=== PATIENT | male | born 1945 | race Caucasian/White ===

== ENCOUNTER 2017-11-12 10:30 | Emergency (ER) | payer OTHER ==
[2017-11-12 11:32] LABS: Absolute Lymphocytes (CBC) 1.4 K/uL (0.7-4.9); Absolute Monocytes 0.6 K/uL (0.1-1.3); Absolute Neutrophil 7.2 K/uL (1.8-8.0); Basophils % 0.4 % (0-1.3); Eosinophils % 0.8 % (0-4.4); Hematocrit 41.7 % (39.6-49.0); Lymphocytes % 14.9 % (15.3-44.8); MCH 31.8 pg (27.0-35.0); MCV 90.4 fL (80-100); MPV 7.4 fL (7.6-11.3); Monocytes % 6.3 % (3.3-12.3); RBC Red Blood Cell Count 4.61 M/uL (4.33-5.43)
[2017-11-12 11:51] LABS: ALT/SGPT 21 U/L (12-78); AST/SGOT 17 U/L (15-37); Alkaline Phosphatase 64 U/L (45-117); BUN Blood Urea Nitrogen 6 mg/dL (7-18); Bicarbonate 27 mmol/L (21-32); Bilirubin Direct 0.3 mg/dL (0-0.2); Bilirubin Total 0.8 mg/dL (0.2-1.0); CKMB Creatine Kinase MB 1.4 ng/mL (0.3-3.6); Creatine Phosphokinase 57 U/L (39-308); Glucose Level 108 mg/dL (74-106); NT PRO-BNP 30 pg/mL (<125); Protein, Total 7.7 g/dL (6.4-8.2); Sodium Level 132 mmol/L (136-145); Troponin (Emerg Dept Use Only) < 0.02 ng/mL (0.0-0.045)
[2017-11-12 12:40] LABS: Protime INR 1.13
[2017-11-12] MEDS ORDERED: NA CHLORIDE 0.9% 1,000 ML ONE (13:16)
--- NOTE | 2017-11-12 13:33 | ER ---
Nurse's Notes [facility] Name: Bennie Pak Age: 72 yrs Sex: Male : 1945 Arrival Date: 11/12/2017 Time: 10:33 Bed 15 Private MD: Kevin Tucker Diagnosis: Insomnia;Volume depletion, unspecified Presentation: 11/12 10:46 Presenting complaint: Patient states: "I've had trouble sleeping for the last few aa5 months and it just keeps getting worse, like I wake up at 1 am now and I can't go back to sleep". Pt reports nausea and decreased appetite for a few days. Denies vomiting. Pt denies abdominal pain. Pt reports urinary frequency x 2 weeks ago. Pt states "I just started taking an antidepressant about 2 weeks ago". Pt reports taking Paroxetine 10mg daily and lorazepam 1mg at bedtime. Transition of care: patient was not received from another setting of care. Onset of symptoms was 2017. Risk Assessment: Do you want to hurt yourself or someone else? Patient reports no desire to harm self or others. Initial Sepsis Screen: Does the patient meet any 2 criteria? No. Patient's initial sepsis screen is negative. Does the patient have a suspected source of infection? No. Patient's initial sepsis screen is negative. Care prior to arrival: None. 10:46 Method Of Arrival: Ambulatory aa5 10:46 Acuity: ULISSES 3 aa5 Triage Assessment: 10:57 General: Appears in no apparent distress. uncomfortable, Behavior is calm, cooperative, hj appropriate for age. Pain: Denies pain. Historical: - Allergies: 10:51 No Known Allergies; aa5 - Home Meds: 10:51 paroxetine HCl 10 mg oral tab 1 tab every morning [Active]; lorazepam 1 mg Oral tab aa5 every evening [Active]; telmisartan 80 mg oral tab 1 tab once daily [Active]; - PMHx: 10:51 Hypertension; aa5 - PSHx: 10:51 Hernia repair; aa5 - Immunization history:: Flu vaccine is up to date. - Social history:: Smoking status: Patient/guardian denies using tobacco. - Ebola Screening: : No symptoms or risks identified at this time. Screenin:57 Abuse screen: Denies threats or abuse. Denies injuries from another. Nutritional hj screening: No deficits noted. Tuberculosis screening: No symptoms or risk factors identified. Fall Risk None identified. Assessment: 10:57 General: Appears in no apparent distress. uncomfortable, Behavior is calm, cooperative, hj appropriate for age. Pain: Denies pain. Neuro: Level of Consciousness is awake, alert, obeys commands, Oriented to person, place, time, situation, Appropriate for age. Cardiovascular: Capillary refill < 3 seconds Patient's skin is warm and dry. Respiratory: Airway is patent Respiratory effort is even, unlabored, Respiratory pattern is regular, symmetrical. GI: No signs and/or symptoms were reported involving the gastrointestinal system. : No signs and/or symptoms were reported regarding the genitourinary system. EENT: No signs and/or symptoms were reported regarding the EENT system. Derm: No signs and/or symptoms reported regarding the dermatologic system. Musculoskeletal: No signs and/or symptoms reported regarding the musculoskeletal system. 10:57 General: loss of appetite and unable to sleep; . hj 12:42 Reassessment: Patient and/or family updated on plan of care and expected duration. Pain hj level reassessed. Patient is alert, oriented x 3, equal unlabored respirations, skin warm/dry/pink. awaiting results and POC;. 13:41 Reassessment: Patient and/or family updated on plan of care and expected duration. Pain hj level reassessed. Patient is alert, oriented x 3, equal unlabored respirations, skin warm/dry/pink. for D/C;. Vital Signs: 10:51 BP 152 / 82; Pulse 78; Resp 16 S; Temp 97.3(TE); Pulse Ox 95% on R/A; Weight 102.06 kg aa5 (R); Height 5 ft. 8 in. (172.72 cm) (R); Pain 0/10; 12:43 BP 152 / 81; Pulse 75; Resp 18; Pulse Ox 97% on R/A; hj 13:41 BP 142 / 80; Pulse 68; Resp 18; Pulse Ox 100% on R/A; hj 10:51 Body Mass Index 34.21 (102.06 kg, 172.72 cm) aa5 ED Course: 10:33 Patient arrived in ED. mr 10:33 Kevin Tucker MD is Private Physician. mr 10:49 Triage completed. aa5 10:49 Arm band placed on. aa5 10:57 Joe Gan, RN is Primary Nurse. hj 10:57 Patient has correct armband on for positive identification. Bed in low position. Call hj light in reach. Side rails up X 1. Adult w/ patient. 10:58 Bailee Garcia FNP-C is [facility]. kb 10:58 Miguelangel Briseno MD is Attending Physician. kb 11:25 Initial lab(s) drawn, by me, sent to lab. EKG done, reviewed by Miguelangel Briseno MD. hj Inserted saline lock: 22 gauge in left forearm, using aseptic technique. Blood collected. 13:55 No provider procedures requiring assistance completed. IV discontinued, intact, hj bleeding controlled, No redness/swelling at site. Pressure dressing applied. Administered Medications: 13:09 Drug: NS 0.9% 1000 ml Route: IV; Rate: 1000 ml; Site: left antecubital; 13:42 Follow up: IV Status: Completed infusion Outcome: 13:33 Discharge ordered by MD. kb 13:55 Discharged to home ambulatory, with family. 13:55 Condition: stable 13:55 Discharge instructions given to patient, Instructed on discharge instructions, the need for admit, Demonstrated understanding of instructions, follow-up care. 13:56 Patient left the ED. Signatures: Bailee Garcia FNP-C FNP-Ckb Rivera, Maria mr UrbanoRena, RN RN [facility] Ema Brito RN RN Joe Gan, [employer] [employer]
--- NOTE | 2017-11-12 13:33 | EDPHYS ---
Physician Documentation [facility] Name: Bennie Pak Age: 72 yrs Sex: Male : 1945 Arrival Date: 11/12/2017 Time: 10:33 Bed 15 Private MD: Kevin Tucker ED Physician Miguelangel Briseno HPI: 11/12 12:24 This 72 yrs old Male presents to ER via Ambulatory with complaints of kb Decreased Appetite, Not Sleeping. 12:25 Pt states he doesn't feel well, can't sleep and doesn't have an appetite. States this kb started a week ago. Saw Dr Castrejon (PCP) and was given medication for depression and anxiety. States he has been more stressed than normal lately. Denies any pain, fever, shortness of breath, urinary symptoms, vomiting, diarrhea, fever. . Onset: The symptoms/episode began/occurred 1 week(s) ago. Severity of symptoms: At their worst the symptoms were moderate in the emergency department the symptoms are unchanged. The patient has not experienced similar symptoms in the past. The patient has been recently seen by a physician: the patient's primary care provider, with similar presenting complaints, given depression medication. Historical: - Allergies: 10:51 No Known Allergies; aa5 - Home Meds: 10:51 paroxetine HCl 10 mg oral tab 1 tab every morning [Active]; lorazepam 1 mg Oral tab aa5 every evening [Active]; telmisartan 80 mg oral tab 1 tab once daily [Active]; - PMHx: 10:51 Hypertension; aa5 - PSHx: 10:51 Hernia repair; aa5 - Immunization history:: Flu vaccine is up to date. - Social history:: Smoking status: Patient/guardian denies using tobacco. - Ebola Screening: : No symptoms or risks identified at this time. ROS: 12:23 Eyes: Negative for injury, pain, redness, and discharge, ENT: Negative for injury, kb pain, and discharge, Neck: Negative for injury, pain, and swelling, Cardiovascular: Negative for chest pain, palpitations, and edema, Respiratory: Negative for shortness of breath, cough, wheezing, and pleuritic chest pain, Abdomen/GI: Negative for abdominal pain, vomiting, diarrhea, and constipation. +nausea and decreased appetite Back: Negative for injury and pain, : Negative for injury, bleeding, discharge, and swelling, MS/Extremity: Negative for injury and deformity, Skin: Negative for injury, rash, and discoloration, Neuro: Negative for headache, weakness, numbness, tingling, and seizure. 12:23 Constitutional: Positive for malaise, poor PO intake, Negative for body aches, chills, fatigue, fever, weight loss. Exam: 12:23 Constitutional: This is a well developed, well nourished patient who is awake, alert, kb and in no acute distress. Head/Face: Normocephalic, atraumatic. Eyes: Pupils equal round and reactive to light, extra-ocular motions intact. Lids and lashes normal. Conjunctiva and sclera are non-icteric and not injected. Cornea within normal limits. Periorbital areas with no swelling, redness, or edema. ENT: Nares patent. No nasal discharge, no septal abnormalities noted. Tympanic membranes are normal and external auditory canals are clear. Oropharynx with no redness, swelling, or masses, exudates, or evidence of obstruction, uvula midline. Mucous membranes moist. Neck: Trachea midline, no thyromegaly or masses palpated, and no cervical lymphadenopathy. Supple, full range of motion without nuchal rigidity, or vertebral point tenderness. No Meningismus. Chest/axilla: Normal chest wall appearance and motion. Nontender with no deformity. No lesions are appreciated. Cardiovascular: Regular rate and rhythm with a normal S1 and S2. No gallops, murmurs, or rubs. Normal PMI, no JVD. No pulse deficits. Respiratory: Lungs have equal breath sounds bilaterally, clear to auscultation and percussion. No rales, rhonchi or wheezes noted. No increased work of breathing, no retractions or nasal flaring. Abdomen/GI: Soft, non-tender, with normal bowel sounds. No distension or tympany. No guarding or rebound. No evidence of tenderness throughout. Back: No spinal tenderness. No costovertebral tenderness. Full range of motion. Skin: Warm, dry with normal turgor. Normal color with no rashes, no lesions, and no evidence of cellulitis. MS/ Extremity: Pulses equal, no cyanosis. Neurovascular intact. Full, normal range of motion. Neuro: Awake and alert, GCS 15, oriented to person, place, time, and situation. Cranial nerves II-XII grossly intact. Motor strength 5/5 in all extremities. Sensory grossly intact. Cerebellar exam normal. Normal gait. 12:23 Psych: Behavior/mood is cooperative, Affect is flat, Oriented to person, place, time, Patient has no thoughts/intents to harm self or others. Judgement / Insight is normal. Memory is normal. Delusions/hallucinations are not present. Vital Signs: 10:51 BP 152 / 82; Pulse 78; Resp 16 S; Temp 97.3(TE); Pulse Ox 95% on R/A; Weight 102.06 kg aa5 (R); Height 5 ft. 8 in. (172.72 cm) (R); Pain 0/10; 12:43 BP 152 / 81; Pulse 75; Resp 18; Pulse Ox 97% on R/A; hj 13:41 BP 142 / 80; Pulse 68; Resp 18; Pulse Ox 100% on R/A; hj 10:51 Body Mass Index 34.21 (102.06 kg, 172.72 cm) aa5 MDM: 10:58 Patient medically screened. kb 12:23 Data reviewed: vital signs, nurses notes. Data interpreted: Pulse oximetry: on room air kb is 95 %. Interpretation: normal. 13:32 Counseling: I had a detailed discussion with the patient and/or guardian regarding: the kb historical points, exam findings, and any diagnostic results supporting the discharge/admit diagnosis, lab results, the need for outpatient follow up, a family practitioner, to return to the emergency department if symptoms worsen or persist or if there are any questions or concerns that arise at home. 11/12 11:04 Order name: Basic Metabolic Panel; Complete Time: 12:06 kb 11/12 11:04 Order name: CBC with Diff; Complete Time: 11:35 kb 11/12 11:04 Order name: Ckmb; Complete Time: 12:06 kb 11/12 11:04 Order name: CPK; Complete Time: 12:06 kb 11/12 11:04 Order name: LFT's; Complete Time: 12:06 kb 11/12 11:04 Order name: Magnesium; Complete Time: 12:06 kb 11/12 11:04 Order name: NT PRO-BNP; Complete Time: 12:06 kb 11/12 11:04 Order name: PT-INR; Complete Time: 12:54 kb 11/12 11:04 Order name: Ptt, Activated; Complete Time: 12:54 kb 11/12 11:04 Order name: Troponin (emerg Dept Use Only); Complete Time: 12:06 kb 11/12 11:04 Order name: EKG; Complete Time: 11:05 kb 11/12 11:04 Order name: Cardiac monitoring; Complete Time: 11:06 kb 11/12 13:17 Order name: Urine Dipstick--Ancillary (enter results); Complete Time: 13:40 eb 11/12 11:04 Order name: EKG - Nurse/Tech; Complete Time: 11:24 kb 11/12 11:04 Order name: IV Saline Lock; Complete Time: 11:24 kb 11/12 11:04 Order name: Labs collected and sent; Complete Time: 11:25 kb 11/12 11:04 Order name: O2 Per Protocol; Complete Time: 11:06 kb 11/12 11:04 Order name: O2 Sat Monitoring; Complete Time: 11:06 kb Administered Medications: 13:09 Drug: NS 0.9% 1000 ml Route: IV; Rate: 1000 ml; Site: left antecubital; 13:42 Follow up: IV Status: Completed infusion hj Disposition: 14:21 Co-signature as Attending Physician, Miguelangel Briseno MD I agree with the assessment and kdr plan of care. Disposition: 11/12/17 13:33 Discharged to Home. Impression: Insomnia, Volume depletion, unspecified. - Condition is Stable. - Discharge Instructions: Insomnia. - Medication Reconciliation Form, Thank You Letter, Antibiotic Education, Prescription Opioid Use form. - Follow up: Private Physician; When: 2 - 3 days; Reason: Recheck today's complaints, Continuance of care, Re-evaluation by your physician. Follow up: Emergency Department; When: As needed; Reason: Worsening of condition. Signatures: Dispatcher [employer] EDBailee Miles, [employer]-Miguelangel Shell MD MD [facility] Rena Urbano RN RN aa5 Ema Brito RN RN ss Joaquin, Henry, RN RN hj Corrections: (The following items were deleted from the chart) 12:27 12:23 Eyes: Negative for injury, pain, redness, and discharge, ENT: Negative for kb injury, pain, and discharge, Neck: Negative for injury, pain, and swelling, Cardiovascular: Negative for chest pain, palpitations, and edema, Respiratory: Negative for shortness of breath, cough, wheezing, and pleuritic chest pain, Abdomen/GI: Negative for abdominal pain, nausea, vomiting, diarrhea, and constipation, Back: Negative for injury and pain, : Negative for injury, bleeding, discharge, and swelling, MS/Extremity: Negative for injury and deformity, Skin: Negative for injury, rash, and discoloration, Neuro: Negative for headache, weakness, numbness, tingling, and seizure, kb 13:40 13:33 11/12/2017 13:33 Discharged to Home. Impression: Insomnia. Condition is Stable. kb Forms are Medication Reconciliation Form, Thank You Letter, Antibiotic Education, Prescription Opioid Use. Follow up: Private Physician; When: 2 - 3 days; Reason: Recheck today's complaints, Continuance of care, Re-evaluation by your physician. Follow up: Emergency Department; When: As needed; Reason: Worsening of condition. 13:56 13:40 11/12/2017 13:33 Discharged to Home. Impression: Insomnia; Volume depletion, hj unspecified. Condition is Stable. Discharge Instructions: Insomnia. Forms are Medication Reconciliation Form, Thank You Letter, Antibiotic Education, Prescription Opioid Use. Follow up: Private Physician; When: 2 - 3 days; Reason: Recheck today's complaints, Continuance of care, Re-evaluation by your physician. Follow up: Emergency Department; When: As needed; Reason: Worsening of condition. kb
[2017-11-12 13:35] LABS: Urine Blood TRACE (NEG); Urine Glucose NEGATIVE (NEG); Urine Protein NEGATIVE (NEG); Urine pH 6.5 (5.0-7.0)
[2017-11-12 14:01] VITALS: TEMP 97.3
[2017-11-12 14:04] VITALS: BP 142/80; O2SAT 100
--- NOTE | 2017-11-13 07:56 | EKG ---
Test Date: 2017-11-12 Test Time: 11:12:09 [employer]: [facility] MEASUREMENT RESULTS: Intervals: Rate: 77 IN: 148 QRSD: 102 QT: 374 QTc: 423 [place]: P: -3 IN: 148 QRS: -33 T: 36 INTERPRETIVE STATEMENTS: Normal sinus rhythm Left axis deviation Abnormal ECG Compared to ECG 10/21/2012 18:36:53 Left-axis deviation now present Left ventricular hypertrophy no longer present Electronically Signed On 11-13-17 07:54:59 CDT by Chester Goel
== END 2017-11-12 13:56 | disposition home or self-care (01) ==
LOC: ER 10:30
DX: E86.9 Volume depletion, unspecified (principal); I10 Essential (primary) hypertension
CPT/HCPCS: 36415; 80048; 80076; 81003; 82550; 82553; 83735; 83880; 84484; 85025; 85610; 85730; 93005; 96360; 99284; J7030

== ENCOUNTER 2018-02-13 16:35 | Emergency (ER) | payer OTHER ==
[2018-02-13 17:06] LABS: Barbiturates NEGATIVE (NEGATIVE); Benzodiazepines NEGATIVE (NEGATIVE); Cocaine NEGATIVE (NEGATIVE); METHAMPHETAM NEGATIVE (NEGATIVE); Methadone NEGATIVE (NEGATIVE); Opiates NEGATIVE (NEGATIVE); Phencyclidine NEGATIVE (NEGATIVE); THC Cannibis NEGATIVE (NEGATIVE)
[2018-02-13] MEDS ORDERED: NA CHLORIDE 0.9% 500 ML ONE ×2 (17:14→19:46)
[2018-02-13 17:32] LABS: Absolute Lymphocytes (CBC) 1.5 K/uL (0.7-4.9); Absolute Monocytes 0.7 K/uL (0.1-1.3); Absolute Neutrophil 9.9 K/uL (1.8-8.0); Basophils % 0.3 % (0-1.3); Hematocrit 40.7 % (39.6-49.0); Lymphocytes % 11.9 % (15.3-44.8); MCH 31.5 pg (27.0-35.0); MCV 92.5 fL (80-100); MPV 7.8 fL (7.6-11.3); RBC Red Blood Cell Count 4.39 M/uL (4.33-5.43)
[2018-02-13 17:35] LABS: Urine Blood NEGATIVE (NEG); Urine Glucose NEGATIVE (NEG); Urine Protein NEGATIVE (NEG); Urine Specific Gravity 1.025 (1.005-1.030); Urine pH 6.5 (5.0-7.0)
[2018-02-13 17:43] LABS: Protime INR 1.11
--- NOTE | 2018-02-13 17:54 | RAD REPORT ---
EXAM DESCRIPTION: Elizabeth Single View02/13/2018 5:33 pm CLINICAL HISTORY: cough COMPARISON: 2012 FINDINGS: The lungs appear clear of acute infiltrate. The heart is normal size IMPRESSION: No acute abnormalities displayed
--- NOTE | 2018-02-13 18:12 | EDPHYS ---
Physician Documentation [facility] Name: Bennie Pak Age: 72 yrs Sex: Male : 1945 Arrival Date: 02/13/2018 Time: 16:36 Bed 18 Private MD: ED Physician Erlin Jama HPI: 02/13 16:53 This 72 yrs old Male presents to ER via EMS with complaints of Suicidal jose d Ideation. 16:53 The patient presents to the emergency department with depression, a history of a jose d suicide gesture, where the patient took pills/medications, ambien, suicide ideation, and the patient has a plan. Onset: The symptoms/episode began/occurred today. Past psychiatric history: Prior diagnosis: depression. Associated signs and symptoms: Pertinent positives; suicide ideation. Severity of symptoms: At their worst the symptoms were moderate in the emergency department the symptoms are unchanged. The patient has experienced similar episodes in the past, several times. Historical: - Allergies: 16:43 No Known Allergies; jl7 - PMHx: 16:43 Hypertension; jl7 - Immunization history:: Adult Immunizations unknown. - Social history:: Smoking status: unknown. - Ebola Screening: : No symptoms or risks identified at this time. - Family history:: not pertinent. ROS: 16:53 Constitutional: Negative for fever, chills, and weight loss, Eyes: Negative for injury, jose d pain, redness, and discharge, ENT: Negative for injury, pain, and discharge, Neck: Negative for injury, pain, and swelling, Cardiovascular: Negative for chest pain, palpitations, and edema, Respiratory: Negative for shortness of breath, cough, wheezing, and pleuritic chest pain, Abdomen/GI: Negative for abdominal pain, nausea, vomiting, diarrhea, and constipation, Back: Negative for injury and pain, : Negative for injury, bleeding, discharge, and swelling, MS/Extremity: Negative for injury and deformity, Skin: Negative for injury, rash, and discoloration, Psych: Negative for depression, anxiety, suicide ideation, homicidal ideation, and hallucinations, Allergy/Immunology: Negative for hives, rash, and allergies, Endocrine: Negative for neck swelling, polydipsia, polyuria, polyphagia, and marked weight changes, Hematologic/Lymphatic: Negative for swollen nodes, abnormal bleeding, and unusual bruising. 16:53 Neuro: Positive for altered mental status, weakness. Exam: 16:53 Constitutional: This is a well developed, well nourished patient who is awake, alert, jose d and in no acute distress. Head/Face: Normocephalic, atraumatic. Eyes: Pupils equal round and reactive to light, extra-ocular motions intact. Lids and lashes normal. Conjunctiva and sclera are non-icteric and not injected. Cornea within normal limits. Periorbital areas with no swelling, redness, or edema. ENT: Nares patent. No nasal discharge, no septal abnormalities noted. Tympanic membranes are normal and external auditory canals are clear. Oropharynx with no redness, swelling, or masses, exudates, or evidence of obstruction, uvula midline. Mucous membranes moist. Neck: Trachea midline, no thyromegaly or masses palpated, and no cervical lymphadenopathy. Supple, full range of motion without nuchal rigidity, or vertebral point tenderness. No Meningismus. Chest/axilla: Normal chest wall appearance and motion. Nontender with no deformity. No lesions are appreciated. Cardiovascular: Regular rate and rhythm with a normal S1 and S2. No gallops, murmurs, or rubs. Normal PMI, no JVD. No pulse deficits. Respiratory: Lungs have equal breath sounds bilaterally, clear to auscultation and percussion. No rales, rhonchi or wheezes noted. No increased work of breathing, no retractions or nasal flaring. Abdomen/GI: Soft, non-tender, with normal bowel sounds. No distension or tympany. No guarding or rebound. No evidence of tenderness throughout. Back: No spinal tenderness. No costovertebral tenderness. Full range of motion. Male : Normal genitalia with no discharge or lesions. Skin: Warm, dry with normal turgor. Normal color with no rashes, no lesions, and no evidence of cellulitis. MS/ Extremity: Pulses equal, no cyanosis. Neurovascular intact. Full, normal range of motion. 16:53 Neuro: Orientation: unable to test, Mentation: slow to respond, confused, Memory: unable to test, Cranial nerves: is grossly normal based on the patient's age, no acute changes, Sensation: is normal, Gait: not tested. seizure activity, is not displayed by the patient. Vital Signs: 16:42 BP 152 / 71; Pulse 95; Resp 18 S; Pulse Ox 99% on R/A; jl7 17:00 BP 155 / 89; Pulse 91; Resp 22; Temp 97.6(O); Pulse Ox 96% on R/A; mh5 17:15 BP 141 / 82 Supine; Pulse 95; Resp 19; Pulse Ox 100% on R/A; mh5 17:30 BP 152 / 97; Pulse 94; Resp 14; Pulse Ox 99% on R/A; mh5 17:45 BP 99 / 72; Pulse 96; Resp 17; Pulse Ox 96% on R/A; mh5 18:00 BP 148 / 75; Pulse 97; Resp 20; Pulse Ox 99% on R/A; mh5 18:17 BP 164 / 86; Pulse 97; Resp 28; Pulse Ox 100% on R/A; mh5 18:30 BP 142 / 94; Pulse 98; Resp 19; Pulse Ox 98% on R/A; mh5 18:45 BP 163 / 89; Pulse 101; Resp 25; Pulse Ox 100% on R/A; mh5 19:00 BP 143 / 92; Pulse 102; Resp 20; Pulse Ox 99% on R/A; mh5 19:15 BP 159 / 96; Pulse 96; Resp 20; Pulse Ox 93% on R/A; mh5 19:18 BP 138 / 91; Pulse 98; Resp 16; Temp 98.0(O); Pulse Ox 99% on R/A; Pain 0/10; ls4 20:02 BP 155 / 82; Pulse 103; Resp 18; Pulse Ox 98% on R/A; oe 20:39 BP 150 / 80; Pulse 89; Resp 16; Pulse Ox 99% on R/A; Pain 0/10; ls4 MDM: 16:37 Patient medically screened. [facility] 16:53 Data reviewed: vital signs, nurses notes, lab test result(s), EKG, radiologic studies, jose d plain films. 02/13 16:38 Order name: Acetaminophen [facility] 02/13 16:38 Order name: Basic Metabolic Panel; Complete Time: 19:21 [facility] 02/13 16:38 Order name: CBC with Diff; Complete Time: 17:42 [facility] 02/13 16:38 Order name: ETOH Level; Complete Time: 17:42 [facility] 02/13 16:38 Order name: Hepatic Function; Complete Time: 19:21 [facility] 02/13 16:38 Order name: PT-INR; Complete Time: 18:09 [facility] 12 16:38 Order name: Ptt, Activated; Complete Time: 18:09 [facility] 02/13 16:38 Order name: Salicylate; Complete Time: 17:42 [facility] 02/13 16:38 Order name: Urine Drug Screen; Complete Time: 17:42 [facility] 02/13 16:38 Order name: Magnesium; Complete Time: 19:21 [facility] 02/13 16:38 Order name: NT PRO-BNP; Complete Time: 19:21 [facility] 02/13 16:38 Order name: Troponin (emerg Dept Use Only); Complete Time: 19:21 [facility] 02/13 16:38 Order name: TSH; Complete Time: 19:21 [facility] 02/13 16:39 Order name: Acetaminophen Level; Complete Time: 19:21 [facility] 02/13 16:38 Order name: EKG; Complete Time: 16:39 [facility] 02/13 16:38 Order name: EKG - Nurse/Tech; Complete Time: 17:14 [facility] 02/13 16:38 Order name: IV Saline Lock; Complete Time: 17:10 [facility] 02/13 16:38 Order name: Labs collected and sent; Complete Time: 17:10 [facility] 02/13 16:38 Order name: Urine Dipstick-Ancillary (obtain specimen); Complete Time: 17:10 [facility] 02/13 16:38 Order name: XRAY Chest (1 view); Complete Time: 18:09 [facility] 02/13 16:38 Order name: Cardiac monitoring; Complete Time: 16:58 [facility] 02/13 16:38 Order name: O2 Per Protocol; Complete Time: 16:58 [facility] 02/13 16:38 Order name: O2 Sat Monitoring; Complete Time: 16:58 [facility] 02/13 16:52 Order name: Urine Dipstick--Ancillary (enter results); Complete Time: 17:42 eb Administered Medications: 17:00 Drug: NS 0.9% 500 ml Route: IV; Rate: bolus; Site: left antecubital; bp 19:04 Follow up: IV Status: Completed infusion; IV Intake: 500ml ls4 19:36 Drug: NS 0.9% 500 ml Route: IV; Rate: bolus; Site: left antecubital; ls4 20:11 Follow up: Response: No adverse reaction; IV Status: Completed infusion; IV Intake: ls4 500ml Disposition: 02/13/18 18:11 Transfer ordered to [facility]. Diagnosis are Suicidal ideations, Suicide attempt - Ambien, Major depressive disorder, recurrent. - Reason for transfer: Higher level of care. - Accepting physician is to [facility]. - Condition is Stable. - Problem is new. - Symptoms have improved. Signatures: Dispatcher [employer] EDErlin Nickerson MD MD cha Leal, Jahala RN RN jl7 Kevin Melara RN RN bp Bibi Shay RN RN ls4 Corrections: (The following items were deleted from the chart) 21:27 18:11 02/13/2018 18:11 Transfer ordered to [facility]. Diagnosis is ls4 Suicidal ideations; Suicide attempt - Ambien; Major depressive disorder, recurrent. Reason for transfer: Higher level of care. Accepting physician is to [facility]. Condition is Stable. Problem is new. Symptoms have improved. jsoe d
--- NOTE | 2018-02-13 18:12 | ER ---
Nurse's Notes [facility] Name: Bennie Pak Age: 72 yrs Sex: Male : 1945 Arrival Date: 02/13/2018 Time: 16:36 Bed 18 Private MD: Diagnosis: Suicidal ideations;Suicide attempt-Ambien;Major depressive disorder, recurrent Presentation: 02/13 16:36 Presenting complaint: EMS states: Pt took unknown amount of Ambien, last seen normal at jl7 0700, found on the floor at 1546 with a suicide note. Pt responds with painful stimuli at this time. Transition of care: patient was not received from another setting of care. Onset of symptoms was February 13, 2018. Risk Assessment: Do you want to hurt yourself or someone else? Unable to obtain Other: STRONGLY SUSPECTED. Initial Sepsis Screen: Does the patient meet any 2 criteria? No. Patient's initial sepsis screen is negative. Does the patient have a suspected source of infection? No. Patient's initial sepsis screen is negative. Care prior to arrival: None. 16:36 Method Of Arrival: EMS: [facility] 16:36 Acuity: ULISSES 2 jl7 Triage Assessment: 17:20 General: Appears in no apparent distress. comfortable, Behavior is drowsy. bp Historical: - Allergies: 16:43 No Known Allergies; jl7 - PMHx: 16:43 Hypertension; jl7 - Immunization history:: Adult Immunizations unknown. - Social history:: Smoking status: unknown. - Ebola Screening: : No symptoms or risks identified at this time. - Family history:: not pertinent. Screenin:18 Abuse screen: Denies threats or abuse. Denies injuries from another. Nutritional bp screening: No deficits noted. Tuberculosis screening: No symptoms or risk factors identified. Fall Risk None identified. Assessment: 16:40 General: Appears in no apparent distress. comfortable, obese, Behavior is drowsy, bp uncooperative. General: 72YO WM P/W AMS AFTER APPARENTLY INTENTIONAL INGESTION OF UNKNOWN AMOUNT OF AMBIEN. PT STUPOROUS, RESPONDING TO INTERNAL STIMULI, BUT GAG REFLEX INTACT. Pain: Unable to use pain scale. Does not appear to understand pain scale. Neuro: Level of Consciousness is obtunded, Oriented to none. Cardiovascular: Rhythm is sinus rhythm. Respiratory: Airway is patent Respiratory effort is even, unlabored, Respiratory pattern is regular, symmetrical. GI: No deficits noted. : No signs and/or symptoms were reported regarding the genitourinary system. EENT: No deficits noted. Derm: No deficits noted. Musculoskeletal: Circulation, motion, and sensation intact. Range of motion: intact in all extremities. 17:26 Reassessment: WITH [facility] POISON CONTROL. ADVISED bp SYMPTOMATIC SUPPORTIVE CARE WITH CONCERN FOR RESPIRATORY DEPRESSION AND HYPOTENSION. OBS UNTIL ASYMPTOMATIC. 19:17 Reassessment: Patient and/or family updated on plan of care and expected duration. Pain ls4 level reassessed. pt alert and oriented to person place and situation. responds to verbal stimuli, follows commands. denies pain. warm blankets and pillow given. NAD Patient states symptoms have improved. 20:06 Reassessment: Patient appears in no apparent distress at this time. Patient and/or ls4 family updated on plan of care and expected duration. Pain level reassessed. SITTER AT BEDSIDE, SPOUSE AT BEDSIDE. Psych: 19:20 Commitment:. ls4 19:20 Interventions: Removed personal items and placed in bag. Patient placed in hospital ls4 gown. Searched person for dangerous items. Urine collected and sent for urine drug test. Belonging list filled out. 19:20 Safety Checks: Personal items have been removed. Door is open. Visitors are present. ls4 Sitter at bedside. 20:08 Subjective: Patient's mood is sad, irritable, Delusions are denied, Hallucinations are ls4 denied Having thoughts of suicide. Plan for suicide is PT TOOK UNKNOWN AMOUNT OF AMBIEN. Objective: Patient is cooperative, Speech is normal, Affect is flat, Patient has mutilated themselves by NONE. Suicide Risk Assessment: Sad Person Scale: Sex of patient: Male: Score 1 point. Age of patient: Score 1 point if patient is over 65. Depression: Score 1 point if signs of depression are present. Previous Attempt: Score 0 point if patient has not previously attempted suicide. Substance Abuse: Score 0 point if patient does not abuse alcohol or drugs. Rational Thinking: Score 0 point if patient has rational thinking. Social Support: Score 0 if social support is present/available. Organized Plan: Score 1 point if patient had a plan in place. Relationship: Score 0 point if patient has a spouse or domestic partner. Chronic Sickness: Score 0 point if patient does not have a chronic illness, debilitating, or severe disorder. TOTAL POINTS: If total points are 5-6, proposed clinical action is to strongly consider hospitalization, depending upon confidence in the follow-up arrangement. Implement suicide precautions. Suicide Risk Assessment: Sad Person Scale: Age of patient: Depression: Previous Attempt: Substance Abuse: Rational Thinking: Score 0 point if patient has rational thinking. Pt denies substance abuse. Vital Signs: 16:42 BP 152 / 71; Pulse 95; Resp 18 S; Pulse Ox 99% on R/A; jl7 17:00 BP 155 / 89; Pulse 91; Resp 22; Temp 97.6(O); Pulse Ox 96% on R/A; mh5 17:15 BP 141 / 82 Supine; Pulse 95; Resp 19; Pulse Ox 100% on R/A; mh5 17:30 BP 152 / 97; Pulse 94; Resp 14; Pulse Ox 99% on R/A; mh5 17:45 BP 99 / 72; Pulse 96; Resp 17; Pulse Ox 96% on R/A; mh5 18:00 BP 148 / 75; Pulse 97; Resp 20; Pulse Ox 99% on R/A; mh5 18:17 BP 164 / 86; Pulse 97; Resp 28; Pulse Ox 100% on R/A; mh5 18:30 BP 142 / 94; Pulse 98; Resp 19; Pulse Ox 98% on R/A; mh5 18:45 BP 163 / 89; Pulse 101; Resp 25; Pulse Ox 100% on R/A; mh5 19:00 BP 143 / 92; Pulse 102; Resp 20; Pulse Ox 99% on R/A; mh5 19:15 BP 159 / 96; Pulse 96; Resp 20; Pulse Ox 93% on R/A; mh5 19:18 BP 138 / 91; Pulse 98; Resp 16; Temp 98.0(O); Pulse Ox 99% on R/A; Pain 0/10; ls4 20:02 BP 155 / 82; Pulse 103; Resp 18; Pulse Ox 98% on R/A; oe 20:39 BP 150 / 80; Pulse 89; Resp 16; Pulse Ox 99% on R/A; Pain 0/10; ls4 ED Course: 16:30 Safety checks: Items removed: yes. Door open/sign placed on door: yes. Family/friend mh5 present: no. Sitter present: Yes. 16:36 Patient arrived in ED. jl7 16:36 Arm band placed on right wrist. jl7 16:37 Erlin Jama MD is Attending Physician. jose d 16:39 Triage completed. jl7 16:40 Straight cath inserted, using sterile technique, 16 Fr. Patient tolerated well. 5 16:45 Safety checks: Items removed: yes. Door open/sign placed on door: yes. Family/friend mh5 present: no. Sitter present: Yes. 16:52 Patient has correct armband on for positive identification. Placed in gown. Bed in low mh5 position. Side rails up X2. Warm blanket given. mds nurse on. Pulse ox on. NIBP on. 16:53 Urine collected: clean catch specimen, tobias colored. [facility] 16:56 Urine Drug Screen Sent. [facility] 16:58 Kevin Melara, RN is Primary Nurse. bp 17:00 Safety checks: Items removed: yes. Door open/sign placed on door: yes. Family/friend mh5 present: no. Sitter present: Yes. 17:07 EKG done, by body shop technician. reviewed by Erlin Jama MD. dt2 17:09 Initial lab(s) drawn, by hi, sent to lab. Inserted saline lock: 20 gauge in left mh5 antecubital area, using aseptic technique. Blood collected. 17:09 Urine Dipstick--Ancillary (enter results) Sent. 5 17:09 Acetaminophen Level Sent. mh5 17:10 TSH Sent. mh5 17:10 Magnesium Sent. mh5 17:10 NT PRO-BNP Sent. 5 17:10 Troponin (emerg Dept Use Only) Sent. mh5 17:10 Basic Metabolic Panel Sent. mh5 17:10 CBC with Diff Sent. mh5 17:10 ETOH Level Sent. mh5 17:11 Hepatic Function Sent. mh5 17:11 PT-INR Sent. mh5 17:11 Ptt, Activated Sent. mh5 17:11 Salicylate Sent. mh5 17:11 Acetaminophen Sent. 5 17:15 Safety checks: Items removed: yes. Door open/sign placed on door: yes. Family/friend mh5 present: no. Sitter present: Yes. 17:30 Safety checks: Items removed: yes. Door open/sign placed on door: yes. Family/friend mh5 present: yes. Sitter present: Yes. 17:32 X-ray completed. Portable x-ray completed in exam room. Patient tolerated procedure ml well. 17:34 XRAY Chest (1 view) In Process Unspecified. EDMS 17:45 Safety checks: Items removed: yes. Door open/sign placed on door: yes. Family/friend mh5 present: yes. Family/friends encouraged to stay with patient. Sitter present: Yes. 18:00 Safety checks: Items removed: yes. Door open/sign placed on door: yes. Family/friend mh5 present: yes. Family/friends encouraged to stay with patient. Sitter present: Yes. 18:15 Safety checks: Items removed: yes. Door open/sign placed on door: yes. Family/friend mh5 present: yes. Family/friends encouraged to stay with patient. Sitter present: Yes. 18:30 Safety checks: Items removed: yes. Door open/sign placed on door: yes. Family/friend mh5 present: yes. Family/friends encouraged to stay with patient. Sitter present: Yes. 18:45 Safety checks: Items removed: yes. Door open/sign placed on door: yes. Family/friend mh5 present: yes. Sitter present: Yes. 19:00 Safety checks: Items removed: yes. Door open/sign placed on door: yes. Family/friend mh5 present: yes. Family/friends encouraged to stay with patient. Sitter present: Yes. 19:15 Safety checks: Items removed: yes. Door open/sign placed on door: yes. Family/friend mh5 present: yes. Family/friends encouraged to stay with patient. Sitter present: Yes. 19:19 No provider procedures requiring assistance completed. ls4 19:30 Safety checks: Items removed: yes. Door open/sign placed on door: yes. Family/friend oe present: yes. Family/friends encouraged to stay with patient. Sitter present: Yes. 19:45 Safety checks: Items removed: yes. Door open/sign placed on door: yes. Family/friend oe present: yes. Family/friends encouraged to stay with patient. Sitter present: Yes. 20:00 Safety checks: Items removed: yes. Door open/sign placed on door: yes. Family/friend oe present: yes. Family/friends encouraged to stay with patient. Sitter present: Yes. 20:15 Safety checks: Items removed: yes. Door open/sign placed on door: yes. Family/friend oe present: yes. Family/friends encouraged to stay with patient. Sitter present: Yes. 20:30 Safety checks: Items removed: yes. Door open/sign placed on door: yes. Family/friend oe present: yes. Family/friends encouraged to stay with patient. Sitter present: Yes. 20:45 Safety checks: Items removed: yes. Door open/sign placed on door: yes. Family/friend oe present: yes. Family/friends encouraged to stay with patient. Sitter present: Yes. 21:00 Safety checks: Items removed: yes. Door open/sign placed on door: yes. Family/friend oe present: yes. Family/friends encouraged to stay with patient. Sitter present: Yes. 21:25 IV discontinued, intact, bleeding controlled, No redness/swelling at site. Pressure ls4 dressing applied. Administered Medications: 17:00 Drug: NS 0.9% 500 ml Route: IV; Rate: bolus; Site: left antecubital; bp 19:04 Follow up: IV Status: Completed infusion; IV Intake: 500ml ls4 19:36 Drug: NS 0.9% 500 ml Route: IV; Rate: bolus; Site: left antecubital; ls4 20:11 Follow up: Response: No adverse reaction; IV Status: Completed infusion; IV Intake: ls4 500ml Intake: 19:04 IV: 500ml; Total: 500ml. ls4 20:11 IV: 500ml; Total: 1000ml. ls4 Outcome: 18:11 ER care complete, transfer ordered by . jose d 20:40 Transferred ls4 20:40 Transferred Note: NADIA RN 21:24 Transferred by ground EMS to [facility], Transfer form completed. ls4 21:24 Condition: stable 21:24 Discharge instructions given to REPORT TO EMS DRIVERS AND NADIA RN 21:27 Patient left the ED. ls4 Signatures: Dispatcher [employer] EDMS Erlin Jama MD MD cha Lopez, Melissa ml Espinosa, Orlando oe Martinez, Maria [facility] Marisa Whelan RN RN jl7 Kevin Melara, BURKE RN Josephine Billy dt2 Bibi Shay, RN RN ls4 Corrections: (The following items were deleted from the chart) 17:20 16:36 Risk Assessment: Do you want to hurt yourself or someone else? Patient reports no bp desire to harm self or others. jl7 19:42 19:41 Safety checks: Items removed: yes. Door open/sign placed on door: yes. oe Family/friend present: yes. Family/friends encouraged to stay with patient. Sitter present: Yes. oe
[2018-02-13 19:16] LABS: ALT/SGPT 20 U/L (12-78); AST/SGOT 19 U/L (15-37); Albumin 3.8 g/dL (3.4-5.0); Alkaline Phosphatase 74 U/L (45-117); BUN Blood Urea Nitrogen 9 mg/dL (7-18); Bicarbonate 31 mmol/L (21-32); Bilirubin Direct 0.3 mg/dL (0-0.2); Bilirubin Total 0.8 mg/dL (0.2-1.0); Glucose Level 96 mg/dL (74-106); Magnesium 2.1 mg/dL (1.8-2.4); NT PRO-BNP 46 pg/mL (<125); Protein, Total 6.8 g/dL (6.4-8.2); Sodium Level 132 mmol/L (136-145); Troponin (Emerg Dept Use Only) < 0.02 ng/mL (0.0-0.045)
[2018-02-13 21:55] VITALS: TEMP 98
[2018-02-13 21:58] VITALS: BP 150/80; O2SAT 99
--- NOTE | 2018-02-13 22:39 | EKG ---
Test Date: 2018-02-13 Test Time: 16:53:16 Extension Edger: CHANNING MEASUREMENT RESULTS: Intervals: Rate: 94 VA: 152 QRSD: 94 QT: 334 QTc: 417 [place]: P: 57 VA: 152 QRS: -30 T: 58 INTERPRETIVE STATEMENTS: Normal sinus rhythm Left axis deviation Cannot rule out Anterior infarct, age undetermined Abnormal ECG Compared to ECG 11/12/2017 11:12:09 Myocardial infarct finding now present Electronically Signed On 02-13-18 22:38:26 RELIGIOUS EDUCATION DIRECTOR by Hernan Casper
== END 2018-02-13 21:27 | disposition short-term general hospital (02) ==
LOC: ER 16:35
DX: T42.6X2A Poisoning by other antiepileptic and sedative-hypnotic drugs, intentional self-harm, initial encounter (principal); R45.851 Suicidal ideations; F33.9 Major depressive disorder, recurrent, unspecified; R94.31 Abnormal electrocardiogram [ECG] [EKG]
CPT/HCPCS: 36415; 51702; 71045; 80048; 80076; 80307; 80320; 80329; 81003; 83735; 83880; 84443; 84484; 85025; 85610; 85730; 93005; 96360; 96361; 99285

== ENCOUNTER 2019-06-12 17:58 | Emergency (ER) | payer OTHER ==
[2019-06-12] MEDS ORDERED: BUPIVACAINE 0.5% PF 10 ML VIAL ONE (18:40)
[2019-06-12] MEDS ORDERED: TETANUS & DIPHTHERIA TOX,ADULT 0.5 ML VIAL ONE (18:41)
--- NOTE | 2019-06-12 19:41 | EDPHYS ---
Physician Documentation [facility] Name: Bennie Pak Age: 73 yrs Sex: Male : 1945 Arrival Date: 06/12/2019 Time: 18:04 Bed 6 Private MD: ED Physician Elijah Tyson HPI: 06/11 18:08 This 73 yrs old Male presents to ER via Ambulatory with complaints of Finger jmm Injury. 18:08 The patient or guardian reports injury. Onset: The symptoms/episode began/occurred jmm acutely, just prior to arrival. Modifying factors: The symptoms are alleviated by nothing, the symptoms are aggravated by nothing. This is a 73 year old male with a history of htn that presents to the ED with complaints of right 5th finger laceration. Patient states he was breaking up a fight between dogs. He hit the attacking dog with a lawn chair which broke and cut his finger. Patient denies dog bite. Patient is not UTD on tetanus immunizations. . Historical: - Allergies: 18:13 No Known Allergies; aa5 - PMHx: 18:13 Hypertension; aa5 - Immunization history:: Last tetanus immunization: unknown, Flu vaccine is up to date. - Social history:: Smoking status: Patient denies any tobacco usage or history of. ROS: 18:08 Constitutional: Negative for fever, chills, and weight loss, Cardiovascular: Negative jmm for chest pain, palpitations, and edema, Respiratory: Negative for shortness of breath, cough, wheezing, and pleuritic chest pain. 18:08 Skin: Positive for laceration(s). 18:08 All other systems are negative. Exam: 18:08 Constitutional: This is a well developed, well nourished patient who is awake, alert, jmm and in no acute distress. Head/Face: atraumatic. Eyes: EOMI, no conjunctival erythema appreciated ENT: Moist Mucus Membranes Neck: Trachea midline, Supple Chest/axilla: Normal chest wall appearance and motion. Cardiovascular: Regular rate and rhythm. No edema appreciated Respiratory: Normal respirations, no respiratory distress appreciated Abdomen/GI: Non distended, soft Back: Normal ROM 18:08 Musculoskeletal/extremity: FROM appreciated to the right proximal phalanx, < 2 sec dist cap refill, NVI. 18:08 Skin: 3 cm laceration noted to the base of the 5th phalanx on the palmar side. 18:08 Neuro: Orientation: is normal, Mentation: is normal, Memory: is normal. 18:08 Psych: Behavior/mood is pleasant, cooperative. Vital Signs: 18:05 BP 162 / 76; Pulse 88; Resp 16 S; Temp 98.7(O); Pulse Ox 98% on R/A; Weight 108.86 kg aa5 (R); Height 5 ft. 8 in. (172.72 cm) (R); Pain 5/10; 19:40 BP 178 / 88; Pulse 80; Resp 18; Pulse Ox 99% on R/A; ea 18:05 Body Mass Index 36.49 (108.86 kg, 172.72 cm) aa5 Laceration: 19:37 Wound Repair of 3cm ( 1.2in ) subcutaneous laceration to palmar aspect of proximal jmm phalanx of right little finger. Distal neuro/vascular/tendon intact. Anesthesia: Local anesthetic administered with 3 mls of 0.5% marcaine. Wound prep: Simple cleansing with hibiclenz by me. Skin closed with 5 5-0 Prolene using simple sutures and sterile technique. Patient tolerated well. MDM: 18:07 Patient medically screened. kera 19:37 Data reviewed: vital signs, nurses notes. Counseling: I had a detailed discussion with mayra the patient and/or guardian regarding: the historical points, exam findings, and any diagnostic results supporting the discharge/admit diagnosis, the need for outpatient follow up, to return to the emergency department if symptoms worsen or persist or if there are any questions or concerns that arise at home. ED course: Patient given wound infection precautions. Patient understood and agrees with the plan of care. 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 Exp: hb 02/08/2021. Lot #: [id number]. } Route: IM; Site: right deltoid; 19:28 Follow up: Response: No adverse reaction ea 19:28 Drug: Marcaine (0.5 %) 10 ml {Note: administered by provider.} Volume: 10 ml; Route: ea Infiltration; Disposition: 06/12/19 19:40 Discharged to Home. Impression: Finger Laceration. - Condition is Stable. - Discharge Instructions: Laceration Care, Adult. - Medication Reconciliation Form, Thank You Letter, Antibiotic Education, Prescription Opioid Use form. - Follow up: Private Physician; When: 7 - 10 days; Reason: Recheck today's complaints, Continuance of care, Staple/Suture removal, Re-evaluation by your physician. Signatures: Javed Bledsoe PA PA jmm Calderon, Audri, RN RN aa5 Mraiel Murphy RN RN Lisa Rodriguez RN RN ea Corrections: (The following items were deleted from the chart) 19:50 19:40 06/12/2019 19:40 Discharged to Home. Impression: Finger Laceration. Condition is ea Stable. Forms are Medication Reconciliation Form, Thank You Letter, Antibiotic Education, Prescription Opioid Use. Follow up: Private Physician; When: 7 - 10 days; Reason: Recheck today's complaints, Continuance of care, Staple/Suture removal, Re-evaluation by your physician. mayra
--- NOTE | 2019-06-12 19:41 | ER ---
Nurse's Notes [facility] Name: Bennie Pak Age: 73 yrs Sex: Male : 1945 Arrival Date: 06/12/2019 Time: 18:04 Bed 6 Private MD: Diagnosis: Finger Laceration Presentation: 06/11 18:05 Chief complaint: Patient states: "my dogs were fighting and I was trying to break them aa5 apart and ended up cutting my finger with a lawn chair". Denies dog bite. Laceration noted to palmar aspect of right little finger, no active bleeding noted. 18:05 Coronavirus screen: Patient denies fever greater than 100.4F, cough, shortness of aa5 breath, or difficulty breathing. Ebola Screen: Patient negative for fever greater than or equal to 101.5 degrees Fahrenheit, and additional compatible Ebola Virus Disease symptoms. Initial Sepsis Screen: Does the patient meet any 2 criteria? No. Patient's initial sepsis screen is negative. Does the patient have a suspected source of infection? No. Patient's initial sepsis screen is negative. Risk Assessment: Do you want to hurt yourself or someone else? Patient reports no desire to harm self or others. 18:05 Method Of Arrival: Ambulatory aa5 18:05 Acuity: ULISSES 4 aa5 Historical: - Allergies: 18:13 No Known Allergies; aa5 - PMHx: 18:13 Hypertension; aa5 - Immunization history:: Last tetanus immunization: unknown, Flu vaccine is up to date. - Social history:: Smoking status: Patient denies any tobacco usage or history of. Screenin:09 Abuse screen: Denies threats or abuse. Nutritional screening: No deficits noted. tw2 Tuberculosis screening: No symptoms or risk factors identified. Fall Risk None identified. Assessment: 18:43 General: Appears in no apparent distress. Behavior is calm, cooperative. Pain: Pain hb currently is 4 out of 10 on a pain scale. Neuro: Level of Consciousness is awake, alert, obeys commands, Oriented to person, place, time, situation. Cardiovascular: Capillary refill < 3 seconds Patient's skin is warm and dry. Respiratory: Airway is patent Respiratory effort is even, unlabored, Respiratory pattern is regular, symmetrical. GI: No signs and/or symptoms were reported involving the gastrointestinal system. : No signs and/or symptoms were reported regarding the genitourinary system. EENT: No signs and/or symptoms were reported regarding the EENT system. Derm: Skin is pink, warm \\T\\ dry. Musculoskeletal: No signs and/or symptoms reported regarding the musculoskeletal system. 18:45 Injury Description: Laceration sustained to palmar aspect of proximal phalanx of right hb little finger is jagged, 2.6 to 7.5 cm long. 19:47 Reassessment: Patient and/or family updated on plan of care and expected duration. Pain ea level reassessed. Patient is alert, oriented x 3, equal unlabored respirations, skin warm/dry/pink. Discharge instruction given to patient, verbalized the understanding of instruction. Pt left ED ambulatory tolerating well. Vital Signs: 18:05 BP 162 / 76; Pulse 88; Resp 16 S; Temp 98.7(O); Pulse Ox 98% on R/A; Weight 108.86 kg aa5 (R); Height 5 ft. 8 in. (172.72 cm) (R); Pain 5/10; 19:40 BP 178 / 88; Pulse 80; Resp 18; Pulse Ox 99% on R/A; ea 18:05 Body Mass Index 36.49 (108.86 kg, 172.72 cm) aa5 ED Course: 18:04 Patient arrived in ED. fj1 18:05 Bed in low position. Call light in reach. tw2 18:06 Javed Bledsoe PA is PHCP. [facility] 18:06 Elijah Tyson DO is Attending Physician. [facility] 18:13 Triage completed. aa5 18:43 Mariel Murphy, RN is Primary Nurse. hb 18:44 Arm band placed on. 19:29 Assist provider with laceration repair on palmar aspect of proximal phalanx of right ea little finger using sutures. Set up tray. Performed by Javed VIERA Patient tolerated well. 19:49 Patient did not have IV access during this emergency room visit. 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 Exp: 02/08/2021. Lot #: [id number]. } Route: IM; Site: right deltoid; 19:28 Follow up: Response: No adverse reaction ea 19:28 Drug: Marcaine (0.5 %) 10 ml {Note: administered by provider.} Volume: 10 ml; Route: ea Infiltration; Outcome: 19:40 Discharge ordered by MD. nunez 19:48 Discharged to home ambulatory. stewart 19:48 Condition: stable 19:48 Discharge instructions given to patient, Instructed on discharge instructions, follow up and referral plans. Demonstrated understanding of instructions, follow-up care. 19:50 Patient left the ED. ea Signatures: Javed Bledsoe PA PA jmm Calderon, Audri, RN RN aa5 Mariel Murphy, RN RN Akilah Pal RN RN tw2 Lisa Rodriguez RN RN Harrison [email or web address] Corrections: (The following items were deleted from the chart) 18:46 18:43 Injury Description: Laceration sustained to palmar aspect of proximal phalanx of hb left ring finger is jagged, 2.6 to 7.5 cm long, 19:29 19:28 Marcaine (0.5 %) 10 ml 10 ml Infiltration 10 ml stewart william
[2019-06-12 19:56] VITALS: TEMP 98.7
[2019-06-12 19:57] VITALS: BP 178/88; O2SAT 99
== END 2019-06-12 19:50 | disposition home or self-care (01) ==
LOC: ER 17:58
PROC: 0JQJ0ZZ Repair Right Hand Subcutaneous Tissue and Fascia, Open Approach (ICD-10-PCS; principal; 2019-06-12)
DX: S61.216A Laceration without foreign body of right little finger without damage to nail, initial encounter (principal); I10 Essential (primary) hypertension; W26.8XXA Contact with other sharp object(s), not elsewhere classified, initial encounter; Y93.89 Activity, other specified; Y92.9 Unspecified place or not applicable; Z23 Encounter for immunization
CPT/HCPCS: 90471; 90714; 99283

== ENCOUNTER 2019-06-20 | Emergency (ER) | payer OTHER | END 2019-06-20 11:40 | disposition home or self-care (01) | DX: Z48.02 Encounter for removal of sutures (principal) | CPT/HCPCS: 99281 ==